=== PATIENT | female | born 1940 | race Hispanic/Latino ===

== ENCOUNTER 2018-12-11 10:57 | Outpatient (CLI) | payer MEDICARE ==
--- NOTE | 2018-12-12 12:51 | Mammography Report ---
BONE DEXA CLINICAL: Postmenopausal TECHNIQUE: 3 site bone DEXA performed on an Hologic scanner. FINDINGS: The average BMD of the lumbar spine L1-L4 is 0.850g/cm squared with a T score of -1.8 and a Z score o f +0.8. The average total BMD of the left hip is 0.869 g/cm squared with a T score of -0.6and a Z score of +1 .4. The left femoral neck BMD is 0.653 g/cm squared with a T score of -1.8 and a Z score of +0.5. IMPRESSION: 1. WHO classification: Osteopenia with increased fracture risk based on spine and left femoral neck m easurements. fracture risk based on left hip measurements. RECOMMENDATION: Clinical correlation and routine screening. Definitions: BMD equal bone mineral density T score = BMD related to peak bone mass of young adult ([place] expressed an standard deviation) Z score = age-matched BMD expressed in SD World health organization (WHO) diagnostic criteria Normal T score greater than equal to 1 standard deviation Osteopenia T score between -1 and -2.4 standard deviation Osteoporosis T score -2.5 standard deviation or below. Note: BMD is not the only risk factor for fracture; also consider factors such as the patient's age, risk of falling, previous osteoporotic fracture, family history of osteoporotic fractures, current sm oker and low body weight. Z scores are not calculated if greater than 80 years of age. Signer Name: Musa Armstrong MD Signed: 12/12/2018 12:47 PM Workstation Name: [id number]
== END 2018-12-11 10:58 | disposition home or self-care (01) ==
LOC: SPVWC 10:57
PROVIDERS: ATTEND Family Medicine
DX: M81.0 Age-related osteoporosis without current pathological fracture (principal); Z78.0 Asymptomatic menopausal state
CPT/HCPCS: 77080